=== PATIENT | female | born 1995 | race Caucasian/White ===

== ENCOUNTER 2016-10-02 21:21 | Emergency (ER) | payer OTHER ==
[~2016-10-02] VITALS: Ht 167.6 cm; Wt 68.2 kg
[2016-10-02 21:25] VITALS: BP 150/91; PULSE 100; TEMP 37.3
[2016-10-02] MEDS ORDERED: XYLOCAINE 1%/SOD BICARB 20 ML VIAL INFIL ONE (21:45)
[2016-10-02 22:10] VITALS: Ht 167.6 cm; Wt 68.2 kg
[2016-10-02] MEDS ORDERED: BCPILLS PO (22:11)
[2016-10-02] MEDS ORDERED: ATOM60CA PO (22:11)
[2016-10-02] MEDS ORDERED: SERT50TA PO (22:11)
[2016-10-02 22:23] VITALS: O2SAT 99
--- NOTE | 2016-10-02 23:43 | EMERGENCY ROOM VISIT NOTE ---
History First contact with patient: 21:34 Chief Complaint: FACIAL PAIN/INJURY Stated Complaint: SPLIT CHIN History of Present Illness The patient is a 20 year old female who presents to the Emergency Room with complaints of a chin laceration after she missed negotiated steps well attempting to text at the same time. She reports falling down approximate 2-3 steps, striking her chin on the step. She denies any headache, loss of consciousness, neck pain or other significant injuries from her fall. Tetanus immunization is up-to-date, and the patient rates her discomfort a 7 out of 10. Review of Systems 6 system review was performed and was negative except for pertinent positives and negatives as indicated in history of present illness Past Medical/Surgical History Medical Problems: (1) Asthma (2) Bronchitis (3) Pneumonia Surgical Problems: (1) History of appendectomy Family History FH: cancer FH: diabetes mellitus FH: heart disease FH: hypertension Social History Smoking Status: Never Smoker Alcohol Use: occasionally Marital Status: single Occupation Status: [employer] Current/Historical Medications Scheduled Atomoxetine (Strattera), 60 MG PO QAM Control Pills ( Control Pills), 1 TAB PO DAILY Sertraline (Zoloft), 50 MG PO DAILY Allergies Coded Allergies: No Known Allergies (Unverified , 10/02/16) Physical Exam Vital Signs Date Time Temp Pulse Resp B/P Pulse Ox O2 Delivery O2 Flow Rate FiO2 10/02/16 22:23 18 99 10/02/16 21:25 37.3 100 16 150/91 96 Room Air Pain Rating (0-10): 0 Physical Exam CONSTITUTIONAL: Healthy and well nourished. Alert and oriented X 3 with positive affect. She does not appear in any acute distress. GCS 15. HEENT: Examination shows a 4 mm laceration under the chin with a small amount of fat extrusion. The patient is able to open and close the mouth without discomfort. Pupils equal, round and reactive. No epistaxis, subconjunctival hemorrhage, hemotympanum, raccoon's eyes or Pimentel sign. OROPHARYNX: No intraoral or dental trauma noted. NECK: Full active range of motion without discomfort. MUSCULOSKELETAL: Full range of motion of all joints without discomfort. INTEGUMENTARY: No rash or other significant dermatologic conditions noted. NEUROLOGIC: No focal neurologic deficits noted. Medical Decision & Procedures Procedure Laceration repair was performed under local anesthesia after receiving verbal consent from the patient. Using buffered 1% lidocaine without epinephrine, good local anesthesia was administered. The wound was then peripherally cleansed with iodine, then irrigated with normal saline. The wound was then approximated using 6-0 nylon simple interrupted sutures 3. Bacitracin was applied. ED Course Patient history and physical exam were performed. Nurse's notes were reviewed. Laceration repair was performed under local anesthesia. The patient was provided additional verbal and written wound care instructions. Ice for swelling. Ibuprofen or Tylenol as needed for pain. Suture removal in 5-7 days , or seek reevaluation sooner for any signs of wound infection. The patient was happy with plan of care, voiced understanding of all discharge instructions , and denied any significant pain at the time of discharge. Medical Decision Impression Primary Impression: Chin laceration Additional Impression: Fall down steps Departure Information Dispostion Home / Self-Care Condition GOOD Forms HOME CARE DOCUMENTATION FORM, IMPORTANT VISIT INFORMATION Patient Instructions A Signature Page, [facility] [employer] Additional Instructions Keep wound clean and dry. Do not allow any crusting or dried blood to accumulate on sutures. If this occurs, use a 1:1 solution of hydrogen peroxide/ water on a Q-tip to clean the wound. Use an antibiotic ointment for 3 days, then let wound dry. Suture removal in 5-7 days. Return sooner for any signs of infection (increasing redness, swelling, drainage). Ice for swelling. Ibuprofen 600 mg and/or Tylenol 1000 mg every 6 hrs as needed for pain. Problem Qualifiers Primary Impression: Chin laceration Encounter type: initial encounter Qualified Codes: S01.81XA - Laceration without foreign body of other part of head, initial encounter Additional Impression: Fall down steps Encounter type: initial encounter Qualified Codes: W10.8XXA - Fall (on) ( from) other stairs and steps, initial encounter
== END 2016-10-02 22:27 | disposition home or self-care (01) ==
LOC: C.EDB 21:23 → C.EDD 22:27
DX: S01.81XA Laceration without foreign body of other part of head, initial encounter (principal); W10.8XXA Fall (on) (from) other stairs and steps, initial encounter; J45.909 Unspecified asthma, uncomplicated; Z98.890 Other specified postprocedural states; Z79.899 Other long term (current) drug therapy; Z80.9 Family history of malignant neoplasm, unspecified; Z83.3 Family history of diabetes mellitus; Z82.49 Family history of ischemic heart disease and other diseases of the circulatory system